=== PATIENT | female | born 2000 | race Caucasian/White ===

== ENCOUNTER 2022-01-01 21:19 | Inpatient (IN) | payer MEDICAID, SELFPAY ==
[2022-01-01] VITALS (11 sets, daily range): BP systolic 107–134; BP diastolic 58–78; PULSE 85; RESP 12–17; TEMP 36.4; O2SAT 96–99; BMI 21.4
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
[2022-01-01] MEDS: sodium chloride 0.9% 1,000 ML 999 ML IV (21:58)
[2022-01-01 22:04] LABS: Basophils # 0.1 10^3/uL (0.0-0.1); Basophils % 0.4 %; Eosinophils # 0.2 10^3/uL (0.0-0.8); Eosinophils % 1.3 %; Hemoglobin 12.1 g/dL (11.5-15.3); Lymphocytes # 2.5 10^3/uL (1.5-6.5); Mean Corpuscular HGB Conc 32.7 g/dL (30.0-36.0); Mean Corpuscular Hemoglobin 30.8 pg (28.0-34.0); Mean Corpuscular Volume 94.1 fl (81-99); Mean Platelet Volume 8.9 fL (7.4-10.4); Monocytes # 1.1 10^3/uL (0.2-0.9); Monocytes % 8.4 %; Neutrophils # 9.21 10^3/uL (1.8-8.0); Neutrophils % 70.5 %; Nucleated Red Blood Cells % 0 %; Platelet Count 304 10^3/cmm (130-400); Red Blood Count 3.93 10^6/uL (4.1-5.3); Red Cell Distribution Width 12.7 % (12.1-15.1); White Blood Count 13.1 10^3/uL (4.5-13.0)
[2022-01-01 22:08] LABS: Add Urine Microscopic? YES; Bilirubin Urine Neg (Negative); Blood Urine Neg (Negative); Glucose Urine UA Norm (Normal); Ketones Urine Negative (Negative); Leukocyte Esterase Urine Trace (Negative); Nitrate Urine Negative (Negative); Protein Urine Neg (Negative); Urine Appearance Hazy (CLEAR); Urine Color Light Yellow (Yellow); Urobilinogen Urine Neg (Negative); pH Urine 5 (5-7)
[2022-01-01 22:16] LABS: Bacteria Urine 1+ /hpf; RBC Urine 0-4 /hpf (0-2); Squamous Epithelial Cell Urine 25-40 /hpf (0-5)
[2022-01-01 22:17] LABS: Add Urine Culture? No; Amphetamines Screen Urine Negative (Negative); Barbiturates Screen Urine Negative (Negative); Benzodiazepines Screen Urine Negative (Negative); Cocaine Screen Urine Negative (Negative); Opiate Screen Urine Negative (Negative); PCP Screen Urine Negative (Negative); THC Screen Urine Negative (Negative)
[2022-01-01 22:35] LABS: Alanine Aminotransferase 16 U/L (0-33); Albumin Level 4.2 g/dL (3.5-5.2); Alkaline Phosphatase 67 U/L (35-105); Anion Gap 12.2 (5-19); Aspartate Amino Transferase 24 U/L (0-32); Blood Urea Nitrogen 12 mg/dL (6-20); Calcium 9.3 mg/dL (8.5-10.5); Carbon Dioxide 26 mmol/L (22-29); Chloride 100 mmol/L (98-107); Globulin 2.9 g/dL (1.3-4.6); Glomerular Filtration Rate 127.5 mL/min (90-130); Glucose 77 mg/dL (65-115); Osmolality Calculated 279 mOsm/kg (285-295); Potassium 3.2 mmol/L (3.5-5.1); Sodium 135 mmol/L (136-145); Thyroid Stimulating Hormone 2.28 uIU/mL (0.27-4.20); Total Bilirubin 0.2 mg/dL (0.15-1.2); Total Protein 7.1 g/dL (6.6-8.7)
[2022-01-01 22:37] LABS: HCG, Serum Qual Negative (Negative)
[2022-01-01 22:40] LABS: Salicylate < 0.3 mg/dL (3-10)
[2022-01-01 22:41] LABS: Acetaminophen < 5.0 ug/mL (10-30); Alcohol Level < 10 mg/dL (0-10)
[2022-01-01] MEDS: morphine 4 mg/mL SDV 1 mL IVP (23:46)
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
[2022-01-02] VITALS (90 sets, daily range): BP systolic 87–173; BP diastolic 36–107; PULSE 62–135; RESP 4–27; TEMP 36.4; O2SAT 92–100
[2022-01-02] MEDS: haloperidol inj 5 mg/mL INJ 1 mL IVP (01:40)
[2022-01-02] MEDS: midazolam 1 mg/mL INJ 2 mL 2 MG IVP (01:40)
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
[2022-01-02] MEDS: sodium chloride 0.9% 1,000 ML 999 ML IV ×2 (03:49→08:44)
--- NOTE | 2022-01-02 07:42 | PC.NURSE ---
report called to JOHNIE Washington [id number]
--- NOTE | 2022-01-02 18:44 | ECG_ITS ---
[facility] Test Date: 2022-01-02 Pat Name: Susan Bass Department: Room: Gender: Female Sales Trainee: : 2000 Requested By: Ray Richards Order Number: [id number] Jose Eduardo MD: Osmany Majano M.D. Measurements Intervals [place] Rate: 69 P: 53 WV: 170 QRS: 63 QRSD: 92 T: 56 QT: 392 QTc: 421 Interpretive Statements SINUS RHYTHM WITH MARKED SINUS ARRHYTHMIA No previous ECG available for comparison Electronically Signed On 01-03-2022 14:51:47 CDT by Osmany Majano M.D. [id number]
[2022-01-02 20:04] LABS: SARS Covid-2 Antigen negative (Negative)
--- NOTE | 2022-01-02 22:39 | PC.NURSE ---
Pt in room with 1:1 sitter, per policy all items removed and she is in paper scrubs, VSS, no complaints at this time.
[2022-01-03] VITALS (21 sets, daily range): BP systolic 86–114; BP diastolic 39–63; PULSE 80–115; RESP 6–32; TEMP 36.6; O2SAT 95–100
--- NOTE | 2022-01-03 10:42 | PC.SOCIAL ---
Addendum entered by Queenie Nolasco 01/04/22 07:47: Patient was admitted to the NPU at [facility]. Addendum entered by Zakia Oconnell RN 01/03/22 11:06: [facility] reports they do not have any discharges at this time and have no available beds. Cm to follow. Addendum entered by Zakia Oconnell RN 01/03/22 10:48: Placement note CM asked to obtain psych placement and have contacted the following facilities [facility]- no available beds [facility] no available beds [facility] no available beds [place] [facility] [place]- no available beds [facility]- not a candidate for facility (only takes voluntary patients) [facility]- previously declined [facility]- not a candidate for facility (too young) [facility]-reviewing and CM to follow up at [address] [facility]- message left [facility]- no available beds [facility]- reviewing information and cm will follow up [facility]- no available beds [place] [facility]- faxed information [facility] in [place]- faxed information [facility]- [facility] beds [facility]- previously declined [facility] faxed and cm to follow up at [address] [facility]- no available beds. Original Note: Placement note The following facilities were contacted over the weekend for placement [facility]- full [facility]- Message left [facility]- full call at a later time [place]- information faxed on 01/02 @ [phone], [phone] [facility] [place]- full on 01/02 [facility]- no beds available [facility]- information faxed at [phone] and 2030 on 01/02 [place]- too young [facility]- Full [facility]- no available beds [facility]- no available beds [facility]- faxed information at [phone], [phone] and [phone] on 01/02, staff to review in [facility]- full [facility]- declined d/t aggression
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
[2022-01-03] MEDS: trazodone 50 mg Tablet PO (20:53)
--- NOTE | 2022-01-04 05:37 | PC.NURSE ---
Patient has rested comfortably throughout the night. No signs of distress. No inappropriate behavior this shift. Continues with safety checks every 15 minutes.
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
[2022-01-04 14:00] VITALS: BP 112/71; PULSE 84; RESP 18; TEMP 36.8; O2SAT 99
[2022-01-04] MEDS: citalopram 20 mg Tablet PO (18:49)
[2022-01-04 19:44] VITALS: BP 113/75; PULSE 89; RESP 16; TEMP 36.7; O2SAT 98
[2022-01-04] MEDS: docusate sodium 100 mg Capsule 200 MG PO (21:02)
[2022-01-04] MEDS: magnesium hydroxide 30 mL UDC PO (21:03)
[2022-01-04] MEDS: trazodone 50 mg Tablet PO (21:25)
[2022-01-05 06:00] VITALS: RESP 18
[2022-01-05] MEDS: citalopram 20 mg Tablet PO (08:28)
[2022-01-05] MEDS: magnesium hydroxide 30 mL UDC PO (08:34)
--- NOTE | 2022-01-05 08:34 | PC.NURSE ---
MILK OF MAGNESIA 30 ML GIVEN PO PER PT C/O CONSTIPATION
[2022-01-05 14:00] VITALS: BP 107/69; PULSE 89; RESP 18; TEMP 36.9; O2SAT 97
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
--- NOTE | 2022-01-05 17:09 | PC.NURSE ---
INFLUENZA VACCINE ONE SINGLE DOSE 0.5 ML GIVEN IM IN RIGHT DELTOID PER PT REQUEST. EDUCATED PATIENT ON FLU VACCINE, VERBALIZED UNDERSTANDING. WILL CONT TO MONITOR INJECTION SITE FOR ANY REDNESS, SWELLING, OR IRRITATION LOT [id number] EXP 09/02/22
[2022-01-05] MEDS: docusate sodium 100 mg Capsule 200 MG PO (20:55)
[2022-01-05] MEDS: trazodone 50 mg Tablet PO (20:55)
[2022-01-05] MEDS: acetaminophen 325 mg Tablet 650 MG PO (21:46)
[2022-01-05 22:00] VITALS: BP 110/74; PULSE 92; RESP 18; TEMP 36.7; O2SAT 97
[2022-01-06 06:00] VITALS: BP 96/59; PULSE 82; RESP 18; TEMP 37; O2SAT 95
[2022-01-06] MEDS: citalopram 20 mg Tablet PO (09:00)
[2022-01-06 12:23] VITALS: BP 96/59; PULSE 82; RESP 18; TEMP 37; O2SAT 95
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
== END 2022-01-06 14:11 | disposition home or self-care (01) | DRG 885 ==
LOC: ER 01-03 07:08 → NP 01-03 17:34
PROVIDERS: Emergency Medicine; Student in an Organized Health Care Education/Training Program; Admitting Provider Psychiatry & Neurology Psychiatry; Emergency Provider Family Medicine; Visit Provider Psychiatry & Neurology Psychiatry
DX: F29 Unspecified psychosis not due to a substance or known physiological condition (principal); R45.851 Suicidal ideations; F32.A Depression, unspecified; F41.9 Anxiety disorder, unspecified; Z63.9 Problem related to primary support group, unspecified; F15.11 Other stimulant abuse, in remission; Z59.00 Homelessness unspecified
CPT/HCPCS: 70450; 71250; 72125; 74176; 80053; 80306; 80307; 81001; 84443; 84703; 85025; 87426; 90471; 90686; 93005; 96361; 96372; 96374; 96375; 97150; 97165; 99285; J1630; J2250; J2270; J3490; J7030